=== PATIENT | female | born 1995 | race Caucasian/White ===

== ENCOUNTER 2017-09-14 12:00 | Emergency (ER) | payer OTHER ==
[2017-09-14 12:03] VITALS: BP 114/60; PULSE 81; RESP 12; TEMP 98.5; O2SAT 99
--- NOTE | 2017-09-14 14:45 | PD ---
HPI Chief Complaint: Exposure to Blood/Body Fluids Time Seen by Provider: 14:24 Travel History International Travel<30 days: No Contact w/Intl Traveler<30days: No Traveled to known affect area: No History of Present Illness HPI 22-year-old female that presents to the ED for evaluation of exposure to blood. Per patient she works at the [employer] and she was cleaning the tools from the surgery when she accidentally cut herself with one of the scalpels. Per patient she cut herself on her left index finger. As far she knows the source blood has no risk factors for hepatitis or HIV. 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 She states this is up-to-date with tetanus. She has no medical issues. Cut was to the left index finger. Patient denies any active bleeding. No other medical issues. Patient states that she has had her hepatitis vaccinations. No allergies to medication. Injury occurred today. Less than a few hours ago. No pain. Has not taken anything for this, did do some basic wound care and hand washing. PFSH Past Medical History Medical History: Denies Significant Hx Diminished Hearing: No Tetanus Vaccination: Unknown ?: Not LMP: 09/14/17 Past Surgical History Surgical History: No Previous Surgery Social History Alcohol Use: Yes (OCCASSIONALLY) Tobacco Use: No Substance Use: No Allergies-Medications (Allergen,Severity, Reaction): Coded Allergies: No Known Allergies (Unverified , 09/14/17) Review of Systems Except as stated in HPI: all other systems reviewed are Neg Physical Exam Narrative GENERAL: SKIN: Warm and dry. HEAD: Atraumatic. Normocephalic. EYES: Pupils equal and round. No scleral icterus. No injection or drainage. ENT: No nasal bleeding or discharge. Mucous membranes pink and moist. Tongue is midline. No uvula deviation. NECK: Trachea midline. No JVD. CARDIOVASCULAR: Regular rate and rhythm. No murmurs, S3, S4. RESPIRATORY: No accessory muscle use. Clear to auscultation. Breath sounds equal bilaterally. GASTROINTESTINAL: Abdomen soft, non-tender, nondistended. Hepatic and splenic margins not palpable. MUSCULOSKELETAL: Extremities without clubbing, cyanosis, or edema. No obvious deformities. Full range of motion of the upper and lower extremities bilaterally. Patient has a superficial less than 0.25 laceration to the left index finger tip. No pain. No bleeding. No pain. No bleeding. Very superficial. NEUROLOGICAL: Awake and alert. No obvious cranial nerve deficits. Motor grossly within normal limits. Five out of 5 muscle strength in the arms and legs. Normal speech. PSYCHIATRIC: Appropriate mood and affect; insight and judgment normal. Data Data Last Documented VS Vital Signs Date Time Temp Pulse Resp B/P (MAP) Pulse Ox O2 Delivery O2 Flow Rate FiO2 09/14/17 12:03 98.5 81 12 114/60 (78) 99 Orders Orders Ed Discharge Order (09/14/17 14:48) MDM Medical Decision Making Medical Screen Exam Complete: Yes Emergency Medical Condition: Yes Medical Record Reviewed: Yes Differential Diagnosis exposure to blood vs hepatitis exposure vs laceration Narrative Course 22-year-old female that presents to the ED for evaluation of exposure. Patient comes here with paperwork from her work area and does showed that source blood is known. Per patient the risks low possibility of hepatitis and HIV exposure. At this time I do agree that PEP is not recommended. She was given the option to receive it but she agreed to wait until source blood is obtained and to see whether she is a risk and started if this happens to be positive. She will get her blood taken here. She is uptodate with vaccinations. Told to follow with employee med. See ED for worsening symptoms. Diagnosis Primary Impression: Employee exposure to blood Patient Instructions: General Instructions Additional Instructions: Follow up with PCP. See ED if worsening symptoms. Med/Other Pt SpecificInfo: No Change to Meds Disposition: 01 DISCHARGE HOME Condition: Stable Chuck Hillman Sep 14, 2017 14:45
== END 2017-09-14 15:51 | disposition home or self-care (01) ==
LOC: NEPE 12:00
DX: Z77.21 Contact with and (suspected) exposure to potentially hazardous body fluids (principal)
CPT/HCPCS: 99282